=== PATIENT | female | born 1940 | race Caucasian/White ===

== ENCOUNTER 2016-06-10 11:44 | Inpatient (IN) | payer MEDICARE, OTHER, MEDICAID ==
[~2016-06-10 11:44] MED LIST: ABSORBASE EXT; ACIDOPHILUS1 CAP PO; ACTOS15 M1 PO; ACTOS15 MG; ACTOS15 MG PO; ACTOS45 MG; ACYCLOVIR400 MG; ADVIL200 M1 PO; ADVIL200 MG; ADVIL200 MG PO; AL-MAG HYDROX-S30 ML PO; ALBUTEROL17 GM INH; ALDACTONE25 MG PO; ALLOPURINOL100 M1 PO; AMANTADINE HCL100 MG; AQUA CARE71 GM TP; AQUAPHOR396 GM TP; ARMOUR THYROID15 M1 PO; ARMOUR THYROID30 M1 PO; ARMOUR THYROID30 MG PO; ATACAND16 MG; ATACAND4 MG PO; AZITHROMYCIN250 MG PO; BACTROBAN15 GM TP; BACTROBAN22 GM TP; BENADRYL IV; BENADRYL25 MG PO; BENADRYL25 MG/TAB NG; BENADRYL25 MG/TAB PO; BENADRYL50 MG PO; BUMEX1 MG PO; BYETTA10 MCG/0.0; BYETTA5 MCG/0.02; CLEOCIN HCL300 MG; CLINDAMYCIN HC300 MG; COLACE100 MG PO; CORTISPORIN EAR10 M EACH EAR; DARVOCET-N 1001 TAB PO; DEBROX15 ML; DEMADEX20 MG; DEMADEX20 MG PO; DORYX100 MG PO; DULCOLAX10 MG/SUPP RC; DULCOLAX5 MG; DULCOLAX5 MG PO; FLEXERIL10 MG PO; GENTAMYCIN IV; GLIPIZIDE ER10 M1 PO; GLIPIZIDE XL10 MG; GLIPIZIDE10 MG; GLIPIZIDE10 MG PO; GLIPIZIDE5 M2 PO; GLIPIZIDE5 MG; GLUCAGON EME1 MG/KIT IJ; HYDROCORTISONE28 G4 TP; IBU-200200 MG PO; K-DUR10 ME1 PO; KAPIDEX60 MG; LASIX40 MG; LASIX40 MG PO; LEVAQUIN750 MG; LEVOTHROID25 MCG PO; LEXAPRO20 MG PO; LISINOPRIL2.5 MG PO; MACRODANTIN; MILK OF MAGNES311 MG PO; MIRALAX17 GM PO; MONISTAT 745 GM VG; MYCOSTATIN15 GM TP; NYSTATIN15 GM TP; OMNARIS12.5 GM NS; OXYGEN; PHENERGAN VC W120 ML PO; PHENERGAN25 M2 RC; PREMARIN0.625 MG PO; PROVENTIL17 GM IH; REGLAN10 MG; SENNA; SENNA8.6 M PO; SODIUM CHLORIDE10 ML FL; ST JOHN'S WORT; SULFAMYLON50 G/PKT TP; TESSALON PERLE100 MG PO; TESSALON200 MG PO; TESTOSTERONE CREAM TP; TESTOSTERONE TOP; THYROXINE PO; TORSEMIDE20 MG; TYGACIL50 MG/VIAL IV; TYLENOL325 MG PO; ULTRAM50 MG PO; VALTREX500 MG; VENTOLIN HFA18 GM IH; VICODIN 5/500 T1 TAB PO; VITAMIN D-1000 UNIT1 PO; VITAMIN D1000 UNI1; VITAMIN D50000 UNI2 PO; VITAMIN D50000 UNIT PO; WATER PILL; WELLBUTRIN SR100 MG PO; ZITHROMAX250MG Z-PAK PO; [UNRECOGNIZED DRUG - OTHER]; [UNRECOGNIZED DRUG - OTHER]; [UNRECOGNIZED DRUG - OTHER]; [UNRECOGNIZED DRUG - OTHER] IV; [UNRECOGNIZED DRUG - OTHER] PO; [UNRECOGNIZED DRUG - OTHER] TP; stool softener
[2016-06-10] MEDS ORDERED: JANUVIA100 M1 PO (11:48)
[2016-06-10] MEDS ORDERED: GLUCOTROL5 M1 PO (11:48)
[2016-06-10] MEDS ORDERED: ZYLOPRIM100 M1 PO (11:48)
[2016-06-10] MEDS ORDERED: TYLENOL325 M2 PO (11:49)
[2016-06-10] MEDS ORDERED: ACTOS15 M1 PO (11:49)
[2016-06-10] MEDS ORDERED: BISCOLAX10 MG PR (11:50)
[2016-06-10] MEDS ORDERED: ENEMA READY-TO133 M1 PR (11:50)
[2016-06-10] MEDS ORDERED: LOPERAMIDE2 M2 PO (11:51)
[2016-06-10] MEDS ORDERED: MILK OF MAGNESIA PO (11:51)
[2016-06-10] MEDS ORDERED: SENNA8.6 M2 PO (11:52)
[2016-06-10] MEDS ORDERED: PROAIR HFA8.5 GM INH (11:52)
[2016-06-10] MEDS ORDERED: BAKING SODA TP (11:53)
[2016-06-10] MEDS ORDERED: ALLERGY CREAM30 GM TP (11:54)
[2016-06-10] MEDS ORDERED: [UNRECOGNIZED DRUG - OTHER] TP (11:54)
[2016-06-10] MEDS ORDERED: ECZEMA ANTI-I28.3 GM TP (11:56)
[2016-06-10] MEDS ORDERED: MAJOR-PREP HEMO57 G1 TP (11:56)
[2016-06-10 12:28] LABS: BASO % 0.2 % (0-2); EOS % 0.3 % (0-7); EOSINOPHIL ABSOLUTE COUNT 0.1 tho/cmm (0.0-0.7); HCT-HEMATOCRIT 33.8 % (34.0-49.0); HGB-HEMOGLOBIN 10.8 gm/dl (12.0-15.5); IMMATURE GRANULOCYTES ABSOLUTE 0.08 tho/cmm (0-0.03); IMMATURE GRANULOCYTES PERCENT 0.5 % (0-0.3); LYMPH % 11.7 % (20-45); MCH (MEAN CORPUSCULAR HGB) 28.2 pg (28.0-32.0); MCV (MEAN CELL VOLUME) 88.3 fl (82.0-96.0); MEAN PLATELET VOLUME 9.6 cmc (9.4-12.4); MONO % 8.7 % (0-12); MONOCYTE ABSOLUTE COUNT 1.5 tho/cmm (0.0-1.2); NEUTROPHIL ABSOLUTE COUNT 13.6 tho/cmm (1.6-8.0); NEUTROPHIL-AUTOMATED 13.6 tho/cmm (1.6-8.0); NEUTROPHILS % 78.6 % (40-80); PLATELET COUNT 209 tho/cmm (150-450); RED BLOOD COUNT 3.83 mil/cmm (4.00-5.20); RED CELL DISTRIBUTION WIDTH 14.6 % (12.4-16.4); WHITE BLOOD COUNT 17.3 tho/cmm (4.0-10.0)
[2016-06-10 12:34] LABS: INR 1.1 INR (0.9-1.1); PROTHROMBIN TIME 12.7 SECONDS (9.0-13.6)
[2016-06-10 12:45] LABS: ANION GAP 9 mmol/L (0-20); BLOOD UREA NITROGEN 16 mg/dl (6-24); CALCIUM 8.5 mg/dl (8.5-10.5); CARBON DIOXIDE-VENOUS 32 mmol/L (22-32); CHLORIDE 99 mmol/l (96-110); CREATININE 0.89 mg/dl (0.50-1.10); GLUCOSE 139 mg/dL (70-110); POTASSIUM 4.1 mmol/L (3.7-5.1); SODIUM 136 mmol/L (135-145); eGFR VALUE FOR BLACK 75 mL/Min
[2016-06-10 13:17] LABS: URINE BILIRUBIN NEGATIVE (NEG); URINE BLOOD MODERATE (NEG); URINE GLUCOSE (UA) NEGATIVE (NEG); URINE KETONE NEGATIVE (NEG); URINE LEUKOCYTE ESTERASE POSITIVE (NEG); URINE NITRITE POSITIVE (NEG); URINE PROTEIN MODERATE (NEG)
[2016-06-10 13:21] LABS: URINE APPEARANCE HAZY; URINE COLOR YELLOW
[2016-06-10 13:33] LABS: URINE WBC 100-120 /[HPF] (0-5)
[2016-06-10 13:34] LABS: URINE AMORPHOUS 2+; URINE BACTERIA 2+; URINE MUCUS 1+
[2016-06-11 05:32] LABS: BASO % 0.2 % (0-2); EOS % 1.5 % (0-7); EOSINOPHIL ABSOLUTE COUNT 0.2 tho/cmm (0.0-0.7); HCT-HEMATOCRIT 31.9 % (34.0-49.0); HGB-HEMOGLOBIN 9.8 gm/dl (12.0-15.5); IMMATURE GRANULOCYTES ABSOLUTE 0.11 tho/cmm (0-0.03); IMMATURE GRANULOCYTES PERCENT 0.9 % (0-0.3); LYMPH % 19.3 % (20-45); LYMPH ABSOLUTE COUNT 2.3 tho/cmm (0.8-4.5); MCH (MEAN CORPUSCULAR HGB) 27.5 pg (28.0-32.0); MCHC MEAN CORPUSCULAR HGB CONC 30.7 % (32.0-36.0); MCV (MEAN CELL VOLUME) 89.6 fl (82.0-96.0); MEAN PLATELET VOLUME 9.8 cmc (9.4-12.4); MONO % 7.5 % (0-12); MONOCYTE ABSOLUTE COUNT 0.9 tho/cmm (0.0-1.2); NEUTROPHIL ABSOLUTE COUNT 8.5 tho/cmm (1.6-8.0); NEUTROPHIL-AUTOMATED 8.5 tho/cmm (1.6-8.0); NEUTROPHILS % 70.6 % (40-80); PLATELET COUNT 185 tho/cmm (150-450); RED BLOOD COUNT 3.56 mil/cmm (4.00-5.20); RED CELL DISTRIBUTION WIDTH 14.9 % (12.4-16.4)
[2016-06-11 05:49] LABS: ANION GAP 8 mmol/L (0-20); BLOOD UREA NITROGEN 16 mg/dl (6-24); CALCIUM 8.2 mg/dl (8.5-10.5); CARBON DIOXIDE-VENOUS 31 mmol/L (22-32); CHLORIDE 101 mmol/l (96-110); GLUCOSE 115 mg/dL (70-110); POTASSIUM 3.9 mmol/L (3.7-5.1); SODIUM 136 mmol/L (135-145); eGFR VALUE FOR BLACK 85 mL/Min
--- NOTE | 2016-06-11 21:05 | NUR ---
VIRTUAL CARE NOTE: ASSESSMENT DEFERRED. PT COMPLAINING TO CHARGE NURSE ABOUT ISSUES. SUGGESTED I DO NOT ROUND TONIGHT. WILL CONTINUE WITH CHART REVIEW.
[2016-06-12 05:11] LABS: BASO % 0.3 % (0-2); EOS % 2.9 % (0-7); EOSINOPHIL ABSOLUTE COUNT 0.3 tho/cmm (0.0-0.7); HCT-HEMATOCRIT 34.1 % (34.0-49.0); HGB-HEMOGLOBIN 10.6 gm/dl (12.0-15.5); IMMATURE GRANULOCYTES ABSOLUTE 0.11 tho/cmm (0-0.03); LYMPH % 21.4 % (20-45); LYMPH ABSOLUTE COUNT 2.3 tho/cmm (0.8-4.5); MCH (MEAN CORPUSCULAR HGB) 27.5 pg (28.0-32.0); MCHC MEAN CORPUSCULAR HGB CONC 31.1 % (32.0-36.0); MCV (MEAN CELL VOLUME) 88.6 fl (82.0-96.0); MEAN PLATELET VOLUME 10.1 cmc (9.4-12.4); MONO % 6.2 % (0-12); MONOCYTE ABSOLUTE COUNT 0.7 tho/cmm (0.0-1.2); NEUTROPHIL ABSOLUTE COUNT 7.4 tho/cmm (1.6-8.0); NEUTROPHIL-AUTOMATED 7.4 tho/cmm (1.6-8.0); NEUTROPHILS % 68.2 % (40-80); PLATELET COUNT 219 tho/cmm (150-450); RED BLOOD COUNT 3.85 mil/cmm (4.00-5.20); RED CELL DISTRIBUTION WIDTH 14.7 % (12.4-16.4); WHITE BLOOD COUNT 10.8 tho/cmm (4.0-10.0)
[2016-06-12 05:18] LABS: ANION GAP 10 mmol/L (0-20); BLOOD UREA NITROGEN 19 mg/dl (6-24); CALCIUM 8.6 mg/dl (8.5-10.5); CARBON DIOXIDE-VENOUS 31 mmol/L (22-32); CHLORIDE 103 mmol/l (96-110); GLUCOSE 146 mg/dL (70-110); POTASSIUM 3.8 mmol/L (3.7-5.1); SODIUM 140 mmol/L (135-145); eGFR VALUE FOR BLACK 85 mL/Min
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
[2016-06-12] MEDS ORDERED: CEFTRIAXON1000 MG/VI IV (12:57)
[2016-06-12] MEDS ORDERED: BENADRYL A12.5 MG/2 IV (12:58)
[2016-06-12] MEDS ORDERED: CULTURELLE1 EAC2 PO (12:58)
[2016-06-12] MEDS ORDERED: BENADRYL IV (13:00)
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
== END 2016-06-12 15:30 | DRG 690 ==
LOC: EDMED 11:44 → EMR2 16:53 → 5WD 20:33
PROVIDERS: Emergency Medicine; Family Medicine; ADMIT Family Medicine
PROC: 05HC33Z Insertion of Infusion Device into Left Basilic Vein, Percutaneous Approach (ICD-10-PCS; principal; 2016-06-10)
DX: N39.0 Urinary tract infection, site not specified (principal); G91.9 Hydrocephalus, unspecified; J96.10 Chronic respiratory failure, unspecified whether with hypoxia or hypercapnia; E66.2 Morbid (severe) obesity with alveolar hypoventilation; Z99.81 Dependence on supplemental oxygen; B96.20 Unspecified Escherichia coli [E. coli] as the cause of diseases classified elsewhere; E11.9 Type 2 diabetes mellitus without complications; Z68.43 Body mass index [BMI] 50.0-59.9, adult; F31.9 Bipolar disorder, unspecified; J44.9 Chronic obstructive pulmonary disease, unspecified; G93.0 Cerebral cysts; E55.9 Vitamin D deficiency, unspecified; Z66 Do not resuscitate; L30.9 Dermatitis, unspecified; S61.303A Unspecified open wound of left middle finger with damage to nail, initial encounter; X58.XXXA Exposure to other specified factors, initial encounter; G47.33 Obstructive sleep apnea (adult) (pediatric); Z91.19 Patient's noncompliance with other medical treatment and regimen; Z87.891 Personal history of nicotine dependence
CPT/HCPCS: C1751; G8978-GP-CM; G8979-GP-CM; J0696; J0780; J1200; J1650; J7030; P9612